=== PATIENT | male | born 1950 | race Caucasian/White ===

== ENCOUNTER 2017-05-16 11:21 | Emergency (ER) | payer OTHER, MEDICARE ==
[~2017-05-16] VITALS: Ht 177.8 cm; Wt 91.2 kg
--- NOTE | 2017-05-16 11:36 | ED ANKLE/FOOT INJURY COMPLAINT ---
History of Present Illness General Chief Complaint: Foot or Ankle Injury Stated Complaint: L ANKLE PAIN Source: patient, old records Exam Limitations: no limitations Vital Signs & Intake/Output Vital Signs & Intake/Output Vital Signs Date Time Temp Pulse Resp B/P B/P Pulse O2 O2 Flow FiO2 Mean Ox Delivery Rate 05/16 1218 98.0 65 18 150/79 99 Room Air 05/16 1124 98.1 82 18 158/72 97 Room Air Allergies Coded Allergies: NO KNOWN ALLERGIES (02/16/12) Reconcile Medications Cephalexin (Keflex) 500 MG CAPSULE 1 CAP PO TID cellulitis Triage Note: PT STATES THAT FOR THE PAST 3 DAYS HE HAS BEEN HAVING PAIN TO THE TOP OF HIS L FOOT, DENIES INJURY, STATES THAT HE HAD THE SAME THING A COUPLE OF MONTHS AGO THAT LASTED ABOUT 5 DAYS AND WENT AWAY. DECLINES MEDS AT TRIAGE Triage Nurses Notes Reviewed? yes Occurred: just prior to arrival Duration: day(s): (3), constant Timing: recent history Severity: mild, moderate Severity Numbers: 5 Pain/Injury Location: Left: Ankle. Method of Injury: unknown No Modifying Factors: none Associated Symptoms: swelling, redness HPI: 66-year-old male with history of high cholesterol, kidney stones, presents to the ER for evaluation complaining of 3 day history of atraumatic left anterior ankle pain and redness. He denies any known injury or trauma. Patient has a history of similar episode in the past which resolved after 5 days. He did not seek medical care at that time. He states that his lower ashton has appeared swollen and red. He denies any breaks in his skin fever or chills. No numbness or tingling pain or foot pain. He took Motrin last night for his pain which improved his symptoms. No known history of gout (Harshad Luna) Past History Travel History Traveled to [place] past 21 day No Medical History Any Pertinent Medical History? none Neurological: NONE EENT: NONE Cardiovascular: NONE Respiratory: NONE Gastrointestinal: NONE Hepatic: NONE Renal: NONE Musculoskeletal: NONE Psychiatric: NONE Endocrine: NONE Blood Disorders: NONE Cancer(s): NONE CEMENT CUTTER/Reproductive: NONE Surgical History Surgical History: non-contributory Psychosocial History What is your primary language Urdu Tobacco Use: Never used ETOH Use: denies use Illicit Drug Use: denies illicit drug use Family History Hx Contributory? No (Harshad Luna) Review of Systems Review of Systems Constitutional: Reports: see HPI. Comments Review of systems: See HPI, All other systems negative. Constitutional, no chills no fever, HEENT: no sore throat no congestion Cardiovascular: No chest pain Skin: no rashes, no change in skin Respiratory: no cough Muscle skeletal: SEE HPI Neurologic: , no headache Heme/endocrine: No bruising Immunology: No lymphadenopathy (Harshad Luna) Physical Exam Physical Exam General Appearance: well developed/nourished, no apparent distress, alert, awake Leg/Knee/Thigh Left: normal range of motion Comments: Well-developed well-nourished patient in no apparent distress. HEENT: Atraumatic, extraocular motion intact Neck: Supple, FROM Back: FROM Respiratory: No respiratory distress. Patient speaking in full complete sentences. Breath sounds clear to auscultation bilaterally: NO W/R/R Upper Extremities: full range of motion Hip/Pelvis: Atraumatic/Stable. FROM. Knee: Atraumatic/stable. FROM. No joint swelling, no effusion. No laxity. No pain with ROM Leg: Atraumatic. neg homans, Nontender. No edema, 5 out of 5 strength in the lower extremity, normal dorsiflexion of great toe bilaterally, gross sensation is intact. Ankle/Foot: erythema and warmth noted to the anteior left ankle, no streaking up the leg, nontender, Atraumatic/stable. Skin intact. FROM. No swelling, no effusion. No laxity on exam Pulses: Normal/equal DP pulse to left foot. Brisk cap refill Neuro: awake, alert, and oriented to person, place and time. There were no obvious focal neurologic abnormalities. Skin: Warm & dry Psych: Mood affect normal, normal memory normal judgment. Diagram Feet Top: 1) area of erythema as described (Harshad Luna) Progress Differential Diagnosis: cellulitis, septic arthritis, gout, fracture, dislocation, sprain, contusion Plan of Care: Orders Procedure Date/time Status XRY-ANKLE 3 OR MORE VIEWS L 05/16 1142 Active Patient declining any pain when offered. X-rays ordered I discussed with the patient at length all of their results. I had an extensive conversation regarding need for close follow up with their primary care physician this week as well as return precautions. I answered all of their questions, they feel comfortable with the plan and follow-up care. I discussed with the patient/family the medications that they will receive. I gave them signs and symptoms that could indicate an adverse reaction. I have advised them to limit their activities until they can see how they respond to the medication. Diagnostic Imaging: Viewed by Me: Radiology Read. Discussed w/RAD: Radiology Read. Radiology Impression: PATIENT: CRISTOFER QUINTANILLA PRESENT AGE: 66 PATIENT ACCOUNT NO: [id number] : 51 LOCATION: [facility] ORDERING PHYSICIAN: Harshad KNOX SERVICE DATE: 05/16/17 EXAM TYPE: RAD - XRY-ANKLE 3 OR MORE VIEWS L EXAMINATION: XR ANKLE, LEFT CLINICAL INFORMATION: Evaluate for fracture. COMPARISON: None TECHNIQUE: AP, lateral, and mortise views of the left ankle. FINDINGS: Normal bony mineralization. No evidence of acute fracture or dislocation. Ankle mortise is preserved. Corticated appearing ossific density noted proximal to the cuboid bone likely representing accessory ossicle. Soft tissue swelling noted in the anterior aspect of the ashton. Underlying osseous structures are intact. IMPRESSION: 1. No acute osseous abnormality. 2. Soft tissue swelling anterior aspect lower ashton and ankle. DICTATED BY: Alia Cody MD DATE/TIME DICTATED:05/16/171220 ELECTRONIC ORGAN TECHNICIAN:EDOUARD DATE/TIME TRANSCRIBED:05/16/171220 CONFIDENTIAL, DO NOT COPY WITHOUT APPROPRIATE AUTHORIZATION. <Electronically signed in Other Vendor System> SIGNED BY: Alia Cody MD 05/16/17 1226 (Harshad Luna) Departure Departure Time of Disposition: 1207 Disposition: HOME OR SELF CARE Condition: Stable Clinical Impression Primary Impression: Cellulitis Referrals: Juan MAJANO,Bobo Ivy (PCP/Family) Additional Instructions: Keflex as directed. Follow-up with your primary care physician for wound check. Return at anytime sooner if you develop redness that is spreading or streaking up her leg, developed fever chills or any other concerns Departure Forms: Customer Survey General Discharge Information Prescriptions: Current Visit Scripts Cephalexin (Keflex) 1 CAP PO TID #21 CAP (Harshad Luna) PA/SECONDARY CONNECTOR [employer] Co-Sign Statement Statement: ED Attending supervision documentation- [X] I saw and evaluated the patient. I have also reviewed all the pertinent lab results and diagnostic results. I agree with the findings and the plan of care as documented in the PA's/SECONDARY CONNECTOR AR[employer]URE's documentation. [X] I have reviewed the ED Record and agree with the PA's/SECONDARY CONNECTOR AR[employer]URE's documentation. [] Additions or exceptions (if any) to the PAs/SECONDARY CONNECTOR ARMATURE's note and plan are summarized below: [] (Vinh MAJANO,Bairon Watson)
[2017-05-16] MEDS ORDERED: KEFLEX500 M1 PO (12:08)
[2017-05-16 12:18] VITALS: BP 150/79
--- NOTE | 2017-05-16 12:26 | RADIOLOGY REPORT ---
EXAMINATION: XR ANKLE, LEFT CLINICAL INFORMATION: Evaluate for fracture. COMPARISON: None TECHNIQUE: AP, lateral, and mortise views of the left ankle. FINDINGS: Normal bony mineralization. No evidence of acute fracture or dislocation. Ankle mortise is preserved. Corticated appearing ossific density noted proximal to the cuboid bone likely representing accessory ossicle. Soft tissue swelling noted in the anterior aspect of the ashton. Underlying osseous structures are intact. IMPRESSION: 1. No acute osseous abnormality. 2. Soft tissue swelling anterior aspect lower ashton and ankle.
== END 2017-05-16 12:20 ==
LOC: ERH 11:21
DX: L03.115 Cellulitis of right lower limb (principal)
CPT/HCPCS: 73610-LT